=== PATIENT | female | born 1995 | race Caucasian/White ===

== ENCOUNTER 2020-04-19 23:29 | Emergency (ER) | payer BC, OTHER ==
--- NOTE | 2020-04-19 23:36 | ERPHSYRPT ---
- History of Present Illness Time Seen by Provider: 04/19/20 23:36 Source: patient, family Exam Limitations: no limitations Physician History: This is a 24-year-old white female who is 8 months . She stated that she has some pain in the left lower extremity posteriorly behind the knee and in the calf. The pain started this morning. Patient contacted the service of her physician. They recommended that she come in to the emergency department for evaluation. Where we do not have ultrasound available notes there is possible emergency issue. Therefore, we will order a d-dimer test. If that is significantly elevated, we will then call in [employer] to perform a venous Doppler of that left lower extremity. Patient denies shortness of breath and denies coughing Method of Injury: other Occurred: this morning Quality: aching Severity of Pain-Max: mild Severity of Pain-Current: mild Lower Extremities Pain: leg: left (And calf) Modifying Factors: Improves With: movement, other (Weightbearing) Allergies/Adverse Reactions: Penicillins Allergy (Intermediate, Verified 04/20/20 00:02) Rash sulfamethoxazole [From Bactrim] Allergy (Intermediate, Verified 04/20/20 00:02) Rash trimethoprim [From Bactrim] Allergy (Intermediate, Verified 04/20/20 00:02) Rash Latex, Natural Rubber Allergy (Mild, Verified 04/20/20 00:02) Hives sertraline [From Zoloft] Allergy (Mild, Verified 04/20/20 00:02) Stomach Pain trazodone Allergy (Mild, Verified 04/20/20 00:02) Headache Home Medications: Vits W-Ca,Fe,FA(<1Mg) [] 1 each PO DAILY 04/20/20 [History] Travel Risk - International Travel Have you traveled outside of the country in past 3 weeks: No Have you or anyone close to you been diagnosed with or: No Do your reside in a community with a known COVID-19 case?: Yes If Yes where:: [facility] - Coronavirus Screening Has patient experienced Coronavirus symptoms: No - Review of Systems Constitutional: No Symptoms Eyes: No Symptoms Ears, Nose, & Throat: No Symptoms Respiratory: No Symptoms Cardiac: No Symptoms Abdominal/Gastrointestinal: No Symptoms Genitourinary Symptoms: No Symptoms Musculoskeletal: Other (Pain behind the knee and posterior calf) Skin: No Symptoms Neurological: No Symptoms Psychological: No Symptoms Endocrine: No Symptoms Hematologic/Lymphatic: No Symptoms Immunological/Allergic: No Symptoms All Other Systems: Reviewed and Negative - Past Medical History Pertinent Past Medical History: No Neurological History: No Pertinent History ENT History: No Pertinent History Cardiac History: No Pertinent History Respiratory History: No Pertinent History Endocrine Medical History: No Pertinent History Musculoskeletal History: No Pertinent History GI Medical History: No Pertinent History History: No Pertinent History Psycho-Social History: No Pertinent History Female Reproductive Disorders: No Pertinent History - Past Surgical History Past Surgical History: No Neuro Surgical History: No Pertinent History Cardiac: No Pertinent History Respiratory: No Pertinent History Gastrointestinal: No Pertinent History Genitourinary: No Pertinent History Musculoskeletal: No Pertinent History Female Surgical History: No Pertinent History - Nursing Vital Signs Nursing Vital Signs: Initial Vital Signs Temperature 98.4 F 04/19/20 23:42 Pulse Rate 104 H 04/19/20 23:42 Respiratory Rate 18 04/19/20 23:42 Blood Pressure 109/67 04/19/20 23:42 O2 Sat by Pulse Oximetry 95 04/19/20 23:42 Pain Scale Pain Intensity 5 - Physical Exam General Appearance: no apparent distress, alert, anxiety Eyes, Ears, Nose, Throat Exam: normal ENT inspection, moist mucous membranes Neck Exam: normal inspection, non-tender, supple, full range of motion Cardiovascular/Respiratory Exam: chest non-tender, no respiratory distress Back Exam: normal inspection, normal range of motion, No CVA tenderness, No vertebral tenderness Hips Exam: bilateral: non-tender, normal inspection, normal range of motion, no evidence of injury Legs Exam: right leg: non-tender, left leg: soft tissue tenderness (Popliteal fossa and left posterior calf), bilateral leg: normal inspection, normal range of motion, no evidence of injury Knees Exam: bilateral knee: non-tender, normal inspection, normal range of motion, no evidence of injury Ankle Exam: bilateral ankle: non-tender, normal inspection, normal range of motion, no evidence of injury Foot Exam: bilateral foot: non-tender, normal inspection, normal range of motion , no evidence of injury Neuro/Tendon Exam: normal sensation, normal motor functions, normal tendon functions Mental Status Exam: alert, oriented x 3, cooperative Skin Exam: normal color, warm, dry SpO2 Interpretation: normal O2 Delivery: Room Air Ordered Tests: Active Orders 24 hr Category Date Time Status VENOUS UNILAT/LIMITED EXTREMIT [US] Stat Exams 04/20/20 00:56 Taken Lab/Rad Data: Laboratory Results 04/19/20 Range/Units 00:05 D-Dimer 1245 H* (215-500) ng/mL - Progress Progress: unchanged, pain not gone completely Progress Note: 04/20/20 01:53 Venous Doppler report of left lower extremity is negative for DVT Counseled pt/family regarding: lab results, diagnosis, need for follow-up, rad results - Departure Departure Disposition: Home Clinical Impression: Left leg pain Condition: Stable Critical Care Time: No Additional Instructions: Tylenol for pain. Follow-up with your roadway technician for further management.
[2020-04-20 02:17] VITALS: BP 98/59; PULSE 95; O2SAT 97
--- NOTE | 2020-04-20 07:50 | XRAY ---
Indication: Pain. Elevated d-dimer. Two-dimensional sonogram and color Doppler imaging of the major venous vessels of the left leg was performed. Comparison: None No thrombus seen in the examined deep venous vessels of the left leg including greater saphenous vein. Veins demonstrate normal compressibility. Venous waveforms are normal with and without augmentation. Impression: Left leg negative for DVT. Comment: Preliminary report was given.
== END 2020-04-20 02:16 | disposition home or self-care (01) ==
LOC: ED 23:29
DX: M79.605 Pain in left leg (principal); O26.893 Other specified pregnancy related conditions, third trimester; Z3A.32 32 weeks gestation of pregnancy
CPT/HCPCS: 36415; 85379; 93971; 99284